=== PATIENT | male | born 1955 | race Caucasian/White ===

== ENCOUNTER 2020-04-04 03:01 | Inpatient (IN) | payer OTHER ==
[~2020-04-04] VITALS: Ht 172.7 cm; Wt 117.1 kg
[2020-04-04 04:00] LABS: Basophils # (auto) 0 10 ^3/uL (0-0.2); Basophils % (auto) 0.2 % (0.0-2.0); Eosinophils # (auto) 0 10 ^3/uL (0-0.8); Hematocrit 46.3 % (41.0-53.0); Hemoglobin 15.6 g/dL (13.5-17.5); Lymphocytes # (auto) 0.6 10 ^3/uL (0.4-5.4); Lymphocytes % (auto) 5.5 % (10.0-50.0); Mean Corpuscular Hemoglobin 30.7 pg (28.0-32.0); Mean Corpuscular Hgb Conc. 33.8 g/dL (32.0-36.0); Mean Corpuscular Volume 90.7 fL (80.0-100.0); Monocytes # (auto) 0.5 10 ^3/uL (0-1.3); Monocytes % (auto) 4.6 % (0.0-12.0); Neutrophils # (auto) 10.4 10 ^3/uL (1.6-8.6); Neutrophils % (auto) 89.7 % (37.0-80.0); Platelet Count (auto) 242 10^3/uL (140-450); Red Cell Distribution Width 13.8 % (11.8-14.3); White Blood Cell 11.6 10^3/uL (4.4-10.8)
[2020-04-04] MEDS ORDERED: methylPREDNISolone SOD SUCC 125 MG/2 ML VL IV ONE (04:00)
[2020-04-04 04:13] LABS: INR 1.01 (0.9-1.15); Partial Thromboplastin Time 27.3 sec (23.0-31.2)
[2020-04-04 04:19] LABS: Albumin 3.1 g/dL (3.4-5.0); Calcium 9.1 mg/dL (8.5-10.1); Magnesium 2.3 mg/dL (1.6-2.6); Potassium 3.8 mmol/L (3.5-5.1)
[2020-04-04 04:25] LABS: BUN/Creatinine Ratio 19.8; Bilirubin, Total 0.6 mg/dL (0.2-1.0); Total Protein 8.4 g/dL (6.4-8.2)
[2020-04-04] MEDS ORDERED: NAP500T PO (05:31)
[2020-04-04] MEDS ORDERED: SILD25TA15 PO (05:31)
[2020-04-04] MEDS ORDERED: METF-762 PO (05:31)
[2020-04-04] MEDS ORDERED: ROSU1TAB14 PO (05:31)
[2020-04-04] MEDS ORDERED: TAMS1CAP25 PO (05:31)
[2020-04-04] MEDS ORDERED: HYDR-4795 PO (05:31)
[2020-04-04 06:05] LABS: Urine Bacteria FEW /hpf (None Seen); Urine Blood Negative /uL (Negative); Urine Hyaline Cast MANY /lpf (0 - 2); Urine Mucus MODERATE (None Seen); Urine Specific Gravity 1.027 (1.001-1.035); Urine WBC 26 /hpf (0 - 3)
[2020-04-04] MEDS ORDERED: DexAMETHasone SOD PHOS 10MG/1ML VIAL INJ IV ONE ×2 (06:45→10:30)
[2020-04-04] MEDS ORDERED: ACETAMINOPHEN 325 MG TAB PO ONE (06:45)
[2020-04-04] MEDS ORDERED: DOXYCYCLINE 100MG/250ML 250 ML IV ONE (06:45)
[2020-04-04 06:50] VITALS: BP 107/87
[2020-04-04 09:15] LABS: Lactic Acid w/Reflex 3.9 mmol/L (0.4-2.0)
[2020-04-04] MEDS ORDERED: MORPHINE SULF INJ 2 MG/ML SYRINGE 1ML IV PRN (10:15)
[2020-04-04] MEDS ORDERED: ALBUTEROL SULF HFA 90MCG INH 200DOSE IN PRN (10:15)
[2020-04-04] MEDS ORDERED: DEXTROSE (50%) 50ML SYRG IV PRN (10:15)
[2020-04-04] MEDS ORDERED: ONDANSETRON HCL 4 MG/2 ML VIAL IV PRN (10:15)
[2020-04-04] MEDS ORDERED: REMDESIVIR PER PHARMACY 0 ML IV SCH (10:15)
[2020-04-04] MEDS ORDERED: HYDROcodone-ACET 5/325MG TAB PO PRN (10:15)
[2020-04-04] MEDS ORDERED: NITROGLYCERIN 0.4 MG SL TAB SL PRN (10:15)
[2020-04-04 10:23] VITALS: BP 131/73
[2020-04-04] MEDS ORDERED: FAMOTIDINE 20 MG TAB PO ONE (10:30)
[2020-04-04] MEDS ORDERED: cefTRIAXone 1GM/50ML D5W 50 ML IV ONE (10:30)
[2020-04-04] MEDS ORDERED: ENOXAPARIN SOD 40 MG/0.4 ML SYRINGE SC ONE (10:30)
[2020-04-04] MEDS ORDERED: ZINC SULFATE 220mg CAP or TAB PO ONE (10:30)
[2020-04-04] MEDS ORDERED: ASCORBIC ACID 1,000 MG TAB PO ONE (10:30)
[2020-04-04] MEDS ORDERED: CHOLECALCIFEROL (VITD3) 2,000 UNIT CAP PO ONE (10:30)
[2020-04-04] MEDS ORDERED: AZITHROMYCIN 500MG/ 250ML 250 ML IV ONE (10:30)
[2020-04-04] MEDS ORDERED: CHOLECALCIFEROL (VITD3) 1,000UNIT=25mCg TAB ONE (10:54)
[2020-04-04 11:10] LABS: Lactic Acid w/Reflex 2.2 mmol/L (0.4-2.0)
[2020-04-04] MEDS ORDERED: LISI-707 PO (11:12)
[2020-04-04 11:18] LABS: Lactate Dehydrogenase 929 U/L (87-241)
[2020-04-04 11:29] LABS: CRP High Sensitivity > 19 mg/dL (< 0.3)
[2020-04-04] MEDS: ACCU-CHEK COMFORT CURVE STRIP VI SCH ×3 (12:19→22:00)
[2020-04-04] MEDS: InsuLIN REG 1unit/0.01ml Soln (100units/ml) SC SCH ×3 (13:13→22:00)
[2020-04-04 13:48] VITALS: BP 152/122
[2020-04-04] MEDS ORDERED: IBUP800T24 PO (14:50)
[2020-04-04] MEDS ORDERED: MULTTAB48 PO (14:54)
[2020-04-04] MEDS ORDERED: ELDE1SYP PO (14:54)
[2020-04-04] MEDS ORDERED: SILD50TA42 PO (15:52)
[2020-04-04] MEDS ORDERED: SIMV10TA84 PO (15:56)
[2020-04-04 19:49] VITALS: BP 125/56
[2020-04-04] MEDS: BUDESONIDE (INHALATION) 0.5 MG/2 ML NEB NEB SCH (19:49)
[2020-04-04] MEDS ORDERED: REMDESIVIR 200 MG in NS 210ml LOADING DOSE ADULT IV ONE (20:00)
[2020-04-04] MEDS: ENOXAPARIN SOD 40 MG/0.4 ML SYRINGE SC SCH (22:00)
[2020-04-04] MEDS ORDERED: BUDESONIDE (INHALATION) 180 MCG IH IN SCH (22:00)
[2020-04-04 23:28] VITALS: BP 133/58
[2020-04-05] VITALS (8 sets, daily range): BP systolic 106–131; BP diastolic 41–62
[2020-04-05 05:13] LABS: Basophils # (auto) 0 10 ^3/uL (0-0.2); Basophils % (auto) 0.1 % (0.0-2.0); Eosinophils # (auto) 0 10 ^3/uL (0-0.8); Hematocrit 40.9 % (41.0-53.0); Hemoglobin 13.7 g/dL (13.5-17.5); Lymphocytes # (auto) 1.7 10 ^3/uL (0.4-5.4); Lymphocytes % (auto) 11.3 % (10.0-50.0); Mean Corpuscular Hemoglobin 30.3 pg (28.0-32.0); Mean Corpuscular Hgb Conc. 33.5 g/dL (32.0-36.0); Mean Corpuscular Volume 90.4 fL (80.0-100.0); Monocytes # (auto) 1.1 10 ^3/uL (0-1.3); Monocytes % (auto) 7.3 % (0.0-12.0); Neutrophils # (auto) 11.8 10 ^3/uL (1.6-8.6); Neutrophils % (auto) 81.3 % (37.0-80.0); Nucleated Red Blood Cells % 0.1 %; Platelet Count (auto) 282 10^3/uL (140-450); Red Blood Cells 4.52 10^6/uL (4.5-5.90); Red Cell Distribution Width 13.9 % (11.8-14.3); White Blood Cell 14.6 10^3/uL (4.4-10.8)
[2020-04-05 05:26] LABS: Albumin 2.7 g/dL (3.4-5.0); BUN/Creatinine Ratio 37.4; Calcium 8.5 mg/dL (8.5-10.1); Potassium 4.7 mmol/L (3.5-5.1)
[2020-04-05 05:29] LABS: Bilirubin, Total 0.4 mg/dL (0.2-1.0); Total Protein 7.1 g/dL (6.4-8.2)
[2020-04-05] MEDS: BUDESONIDE (INHALATION) 0.5 MG/2 ML NEB NEB SCH ×2 (07:06→23:00)
[2020-04-05] MEDS: ACCU-CHEK COMFORT CURVE STRIP VI SCH ×4 (07:52→22:44)
[2020-04-05] MEDS: InsuLIN REG 1unit/0.01ml Soln (100units/ml) SC SCH ×4 (07:53→22:45)
[2020-04-05] MEDS ORDERED: FUROSEMIDE 20 MG/2 ML VIAL IV SCH (10:00)
[2020-04-05] MEDS: cefTRIAXone 1GM/50ML D5W 50 ML IV SCH (11:03)
[2020-04-05] MEDS: AZITHROMYCIN 500MG/ 250ML 250 ML IV SCH (11:04)
[2020-04-05] MEDS: DexAMETHasone SOD PHOS 10MG/1ML VIAL INJ IV SCH (11:04)
[2020-04-05] MEDS: FAMOTIDINE 20 MG TAB PO SCH (11:04)
[2020-04-05] MEDS: ZINC SULFATE 220mg CAP or TAB PO SCH (11:04)
[2020-04-05] MEDS: ENOXAPARIN SOD 40 MG/0.4 ML SYRINGE SC SCH ×2 (11:05→22:44)
[2020-04-05] MEDS: CHOLECALCIFEROL (VITD3) 2,000 UNIT CAP PO SCH (11:05)
[2020-04-05] MEDS: ASCORBIC ACID 1,000 MG TAB PO SCH (11:05)
[2020-04-05] MEDS ORDERED: SODIUM CHLORIDE 0.9% 500 ML IV ONE (11:15)
[2020-04-05] MEDS: REMDESIVIR 100 MG in SODIUM CHL 0.9% 250 ML IV SCH (16:25)
[2020-04-05] MEDS: ERGOCALCIFEROL 50,000 UNIT(1.25MG) CAP PO SCH (23:04)
[2020-04-06 05:09] LABS: Albumin 2.8 g/dL (3.4-5.0); Calcium 8.6 mg/dL (8.5-10.1); Potassium 4.1 mmol/L (3.5-5.1)
[2020-04-06 05:13] LABS: BUN/Creatinine Ratio 45.8; Bilirubin, Total 0.5 mg/dL (0.2-1.0); Total Protein 7.2 g/dL (6.4-8.2)
[2020-04-06 05:45] VITALS: BP 119/61
[2020-04-06] MEDS: ALBUTEROL SULF HFA 90MCG INH 200DOSE IN SCH ×3 (06:00→22:00)
[2020-04-06] MEDS: ACCU-CHEK COMFORT CURVE STRIP VI SCH ×4 (06:49→20:40)
[2020-04-06] MEDS: InsuLIN REG 1unit/0.01ml Soln (100units/ml) SC SCH ×4 (06:53→20:37)
[2020-04-06] MEDS: BUDESONIDE (INHALATION) 0.5 MG/2 ML NEB NEB SCH ×2 (10:00→19:49)
[2020-04-06] MEDS: ZINC SULFATE 220mg CAP or TAB PO SCH (13:11)
[2020-04-06] MEDS: AZITHROMYCIN 500MG/ 250ML 250 ML IV SCH (13:11)
[2020-04-06] MEDS: cefTRIAXone 1GM/50ML D5W 50 ML IV SCH (13:11)
[2020-04-06] MEDS: FAMOTIDINE 20 MG TAB PO SCH (13:11)
[2020-04-06] MEDS: DexAMETHasone SOD PHOS 10MG/1ML VIAL INJ IV SCH (13:11)
[2020-04-06] MEDS: ASCORBIC ACID 1,000 MG TAB PO SCH (13:11)
[2020-04-06] MEDS: ENOXAPARIN SOD 40 MG/0.4 ML SYRINGE SC SCH ×2 (13:12→20:40)
[2020-04-06] MEDS: CHOLECALCIFEROL (VITD3) 2,000 UNIT CAP PO SCH (13:12)
[2020-04-06 13:35] VITALS: BP 112/40
[2020-04-06] MEDS: ACETAMINOPHEN 500 MG TAB PO PRN (15:25)
[2020-04-06] MEDS: REMDESIVIR 100 MG in SODIUM CHL 0.9% 250 ML IV SCH (18:33)
[2020-04-06 19:20] VITALS: BP 147/81
[2020-04-07 02:46] VITALS: BP_SYST 123; BP_SYST 133; BP_DIAS 62; BP_DIAS 70
[2020-04-07] MEDS: ALBUTEROL SULF HFA 90MCG INH 200DOSE IN SCH ×2 (06:00→14:00)
[2020-04-07 06:20] VITALS: BP 141/43
[2020-04-07] MEDS: ACCU-CHEK COMFORT CURVE STRIP VI SCH ×4 (07:41→21:22)
[2020-04-07] MEDS: InsuLIN REG 1unit/0.01ml Soln (100units/ml) SC SCH ×4 (07:41→21:21)
[2020-04-07 08:22] LABS: Potassium 4.1 mmol/L (3.5-5.1)
[2020-04-07 08:35] LABS: Albumin 2.4 g/dL (3.4-5.0); BUN/Creatinine Ratio 40.3; Bilirubin, Total 0.6 mg/dL (0.2-1.0); Calcium 8.8 mg/dL (8.5-10.1); Total Protein 6.5 g/dL (6.4-8.2)
[2020-04-07] MEDS: CHOLECALCIFEROL (VITD3) 2,000 UNIT CAP PO SCH (09:32)
[2020-04-07] MEDS: ENOXAPARIN SOD 40 MG/0.4 ML SYRINGE SC SCH ×2 (09:32→21:22)
[2020-04-07] MEDS: FAMOTIDINE 20 MG TAB PO SCH (09:32)
[2020-04-07] MEDS: ASCORBIC ACID 1,000 MG TAB PO SCH (09:32)
[2020-04-07] MEDS: cefTRIAXone 1GM/50ML D5W 50 ML IV SCH (09:32)
[2020-04-07] MEDS: AZITHROMYCIN 500MG/ 250ML 250 ML IV SCH (09:32)
[2020-04-07] MEDS: ZINC SULFATE 220mg CAP or TAB PO SCH (09:32)
[2020-04-07] MEDS: DexAMETHasone SOD PHOS 10MG/1ML VIAL INJ IV SCH (09:32)
[2020-04-07] MEDS: BUDESONIDE (INHALATION) 0.5 MG/2 ML NEB NEB SCH ×2 (10:00→19:21)
[2020-04-07] MEDS ORDERED: FUROSEMIDE 40 MG/4 ML VIAL IV ONE (14:30)
[2020-04-07] MEDS: REMDESIVIR 100 MG in SODIUM CHL 0.9% 250 ML IV SCH (15:00)
[2020-04-07] MEDS ORDERED: SUCCINYLCHOLINE CHLORIDE 20 MG/ML 10ML VIAL IV ONE ×2 (15:23→15:41)
[2020-04-07] MEDS ORDERED: ETOMIDATE (2MG/ML) 20ML VIAL IV ONE ×2 (15:23→16:15)
[2020-04-07] MEDS ORDERED: MIDAZOLAM DRIP 50 mg/50mL 50 ML IV ONE (15:23)
[2020-04-07 15:42] VITALS: BP 123/74
[2020-04-07] MEDS: MIDAZOLAM DRIP 50 mg/50mL 50 ML IV SCH (15:43)
[2020-04-07] MEDS: PROPOFOL 100 ML IV SCH (15:43)
[2020-04-07] MEDS ORDERED: PROPOFOL 100 ML IV ONE (15:44)
[2020-04-07] MEDS ORDERED: fentaNYL Drip 2500mCg/250mlNS 250 ML IV ONE (16:32)
[2020-04-07] MEDS: fentaNYL Drip 2500mCg/250mlNS 250 ML IV SCH (16:40)
[2020-04-07 18:50] VITALS: BP 100/56
[2020-04-07 22:10] VITALS: BP 102/54
[2020-04-07] MEDS: ALBUTEROL SULF 2.5 MG/0.5ML(0.5%) NEB SOLN NEB SCH (22:18)
[2020-04-08] VITALS (85 sets, daily range): BP systolic 87–116; BP diastolic 42–58
[2020-04-08 05:41] LABS: Albumin 2.3 g/dL (3.4-5.0); Magnesium 2.3 mg/dL (1.6-2.6); Potassium 4.7 mmol/L (3.5-5.1)
[2020-04-08] MEDS: ACCU-CHEK COMFORT CURVE STRIP VI SCH ×4 (05:46→21:55)
[2020-04-08] MEDS: InsuLIN REG 1unit/0.01ml Soln (100units/ml) SC SCH ×4 (05:46→23:28)
[2020-04-08 05:47] LABS: BUN/Creatinine Ratio 35.4; Bilirubin, Total 0.6 mg/dL (0.2-1.0); Total Protein 6.3 g/dL (6.4-8.2)
[2020-04-08 06:06] LABS: Basophils # (auto) 0.1 10 ^3/uL (0-0.2); Basophils % (auto) 0.4 % (0.0-2.0); Eosinophils # (auto) 0.1 10 ^3/uL (0-0.8); Eosinophils % (auto) 0.6 % (0.0-7.0); Hematocrit 38.5 % (41.0-53.0); Hemoglobin 13.2 g/dL (13.5-17.5); Lymphocytes # (auto) 1.1 10 ^3/uL (0.4-5.4); Lymphocytes % (auto) 7.7 % (10.0-50.0); Mean Corpuscular Hemoglobin 31.9 pg (28.0-32.0); Mean Corpuscular Hgb Conc. 34.3 g/dL (32.0-36.0); Mean Corpuscular Volume 93.2 fL (80.0-100.0); Monocytes # (auto) 0.9 10 ^3/uL (0-1.3); Monocytes % (auto) 6.1 % (0.0-12.0); Neutrophils # (auto) 12.7 10 ^3/uL (1.6-8.6); Neutrophils % (auto) 85.2 % (37.0-80.0); Nucleated Red Blood Cells % 0.1 %; Platelet Count (auto) 273 10^3/uL (140-450); Red Blood Cells 4.14 10^6/uL (4.5-5.90); Red Cell Distribution Width 13.8 % (11.8-14.3); White Blood Cell 14.9 10^3/uL (4.4-10.8)
[2020-04-08] MEDS: ALBUTEROL SULF 2.5 MG/0.5ML(0.5%) NEB SOLN NEB SCH ×3 (06:15→18:20)
[2020-04-08] MEDS: BUDESONIDE (INHALATION) 0.5 MG/2 ML NEB NEB SCH ×2 (06:15→18:20)
[2020-04-08] MEDS: cefTRIAXone 1GM/50ML D5W 50 ML IV SCH (09:00)
[2020-04-08] MEDS ORDERED: PIPERACILLIN-TAZO 4.5GM 100 ML IV ONE (09:15)
[2020-04-08] MEDS ORDERED: CALCIUM ACETATE 667 MG CAP PO ONE (09:15)
[2020-04-08] MEDS: DexAMETHasone SOD PHOS 10MG/1ML VIAL INJ IV SCH (10:00)
[2020-04-08] MEDS ORDERED: FUROSEMIDE 20 MG/2 ML VIAL IV SCH (10:00)
[2020-04-08] MEDS: ZINC SULFATE 220mg CAP or TAB PO SCH (10:00)
[2020-04-08] MEDS: FUROSEMIDE 20 MG/2 ML VIAL IV SCH (10:00)
[2020-04-08] MEDS: ASCORBIC ACID 1,000 MG TAB PO SCH (10:00)
[2020-04-08] MEDS: AZITHROMYCIN 500MG/ 250ML 250 ML IV SCH (10:00)
[2020-04-08] MEDS: PANTOPRAZOLE 40 MG/10 ML VIAL INJ IV SCH (10:00)
[2020-04-08] MEDS: CHOLECALCIFEROL (VITD3) 2,000 UNIT CAP PO SCH (10:00)
[2020-04-08] MEDS ORDERED: ENOXAPARIN SOD 80 MG/0.8ML SYRINGE SC ONE (10:45)
[2020-04-08] MEDS ORDERED: ACETAMINOPHEN 650 mg PER 20.3 mL UD PO ONE ×2 (11:30→16:30)
[2020-04-08] MEDS: PROPOFOL 100 ML IV SCH ×3 (11:30→18:31)
[2020-04-08] MEDS ORDERED: diphenhdrAMINE HCL 50 MG/1 ML VL IV ONE ×2 (11:30→16:30)
[2020-04-08] MEDS ORDERED: TOCILIZUMAB 400 MG in SODIUM CHL 0.9% 80 ML IV ONE ×2 (12:00→17:00)
[2020-04-08] MEDS: MIDAZOLAM DRIP 50 mg/50mL 50 ML IV SCH ×2 (14:21→18:32)
[2020-04-08] MEDS: fentaNYL Drip 2500mCg/250mlNS 250 ML IV SCH (14:21)
[2020-04-08] MEDS: REMDESIVIR 100 MG in SODIUM CHL 0.9% 250 ML IV SCH (16:05)
[2020-04-08] MEDS ORDERED: methylPREDNISolone SOD SUCC 40 MG/ML VL IV ONE (16:30)
[2020-04-08] MEDS: PIPERACILLIN-TAZOB 3.375GM 100 ML IV SCH ×2 (19:31→23:42)
[2020-04-08] MEDS: ENOXAPARIN SOD 120 MG/0.8 ML SYRINGE SC SCH (21:56)
[2020-04-08] MEDS: ACETAMINOPHEN 500 MG TAB PO PRN (22:00)
[2020-04-09] VITALS (90 sets, daily range): BP systolic 110–166; BP diastolic 49–81
[2020-04-09 03:27] LABS: Basophils # (auto) 0.1 10 ^3/uL (0-0.2); Basophils % (auto) 0.5 % (0.0-2.0); Eosinophils # (auto) 0 10 ^3/uL (0-0.8); Eosinophils % (auto) 0.3 % (0.0-7.0); Hemoglobin 12.4 g/dL (13.5-17.5); Lymphocytes # (auto) 0.5 10 ^3/uL (0.4-5.4); Lymphocytes % (auto) 3.9 % (10.0-50.0); Mean Corpuscular Hemoglobin 30.1 pg (28.0-32.0); Mean Corpuscular Hgb Conc. 32.7 g/dL (32.0-36.0); Mean Corpuscular Volume 92.1 fL (80.0-100.0); Monocytes # (auto) 0.5 10 ^3/uL (0-1.3); Monocytes % (auto) 4.2 % (0.0-12.0); Neutrophils # (auto) 11.6 10 ^3/uL (1.6-8.6); Neutrophils % (auto) 91.1 % (37.0-80.0); Nucleated Red Blood Cells % 0.1 %; Platelet Count (auto) 308 10^3/uL (140-450); Red Blood Cells 4.12 10^6/uL (4.5-5.90); Red Cell Distribution Width 14.1 % (11.8-14.3); White Blood Cell 12.7 10^3/uL (4.4-10.8)
[2020-04-09 04:17] LABS: Calcium 7.9 mg/dL (8.5-10.1); Potassium 4.5 mmol/L (3.5-5.1)
[2020-04-09 04:25] LABS: BUN/Creatinine Ratio 31.9; CRP High Sensitivity 12.2 mg/dL (< 0.3); Phosphorus 3.5 mg/dL (2.5-4.90)
[2020-04-09] MEDS: ACCU-CHEK COMFORT CURVE STRIP VI SCH ×4 (05:27→21:39)
[2020-04-09] MEDS: PIPERACILLIN-TAZOB 3.375GM 100 ML IV SCH ×4 (05:27→23:29)
[2020-04-09] MEDS: fentaNYL Drip 2500mCg/250mlNS 250 ML IV SCH (05:45)
[2020-04-09] MEDS: InsuLIN REG 1unit/0.01ml Soln (100units/ml) SC SCH ×4 (05:58→21:42)
[2020-04-09] MEDS: ALBUTEROL SULF 2.5 MG/0.5ML(0.5%) NEB SOLN NEB SCH ×3 (07:30→18:50)
[2020-04-09] MEDS: BUDESONIDE (INHALATION) 0.5 MG/2 ML NEB NEB SCH ×2 (07:30→18:50)
[2020-04-09] MEDS: cefTRIAXone 1GM/50ML D5W 50 ML IV SCH (09:27)
[2020-04-09] MEDS: DexAMETHasone SOD PHOS 10MG/1ML VIAL INJ IV SCH (09:27)
[2020-04-09] MEDS: FUROSEMIDE 20 MG/2 ML VIAL IV SCH (09:27)
[2020-04-09] MEDS: PANTOPRAZOLE 40 MG/10 ML VIAL INJ IV SCH (09:28)
[2020-04-09] MEDS: ZINC SULFATE 220mg CAP or TAB PO SCH (09:28)
[2020-04-09] MEDS: ASCORBIC ACID 1,000 MG TAB PO SCH (09:28)
[2020-04-09] MEDS: CHOLECALCIFEROL (VITD3) 2,000 UNIT CAP PO SCH (09:28)
[2020-04-09] MEDS: ENOXAPARIN SOD 120 MG/0.8 ML SYRINGE SC SCH ×2 (09:29→21:39)
[2020-04-09 09:35] LABS: INR 1.06 (0.9-1.15); Partial Thromboplastin Time 24.1 sec (23.0-31.2)
[2020-04-09] MEDS ORDERED: ACETAMINOPHEN 650 mg PER 20.3 mL UD PO ONE (10:00)
[2020-04-09] MEDS ORDERED: diphenhdrAMINE HCL 50 MG/1 ML VL IV ONE (10:00)
[2020-04-09] MEDS ORDERED: TOCILIZUMAB 400 MG in SODIUM CHL 0.9% 80 ML IV ONE (10:30)
[2020-04-09] MEDS ORDERED: PANTOPRAZOLE 40 MG/10 ML VIAL INJ IV ONE (11:30)
[2020-04-09] MEDS: AZITHROMYCIN 500MG/ 250ML 250 ML IV SCH (11:42)
[2020-04-09] MEDS ORDERED: LIDOCAINE 1% (LOCAL ANESTH.) PF 5ml SDV ID ONE (12:45)
[2020-04-09] MEDS: MIDAZOLAM DRIP 50 mg/50mL 50 ML IV SCH ×2 (13:30→19:56)
[2020-04-09] MEDS: SODIUM CHLOR 0.9% PF (SALINE LOCK) 10ML VIAL/SYR IV SCH (21:39)
[2020-04-10] VITALS (92 sets, daily range): BP systolic 111–165; BP diastolic 52–80
[2020-04-10 03:14] LABS: Basophils # (auto) 0.1 10 ^3/uL (0-0.2); Basophils % (auto) 0.5 % (0.0-2.0); Eosinophils # (auto) 0.2 10 ^3/uL (0-0.8); Eosinophils % (auto) 1.8 % (0.0-7.0); Hematocrit 38.4 % (41.0-53.0); Hemoglobin 12.8 g/dL (13.5-17.5); Lymphocytes # (auto) 1.2 10 ^3/uL (0.4-5.4); Mean Corpuscular Hemoglobin 30.6 pg (28.0-32.0); Mean Corpuscular Hgb Conc. 33.4 g/dL (32.0-36.0); Mean Corpuscular Volume 91.6 fL (80.0-100.0); Monocytes # (auto) 0.9 10 ^3/uL (0-1.3); Monocytes % (auto) 6.9 % (0.0-12.0); Neutrophils % (auto) 81.8 % (37.0-80.0); Platelet Count (auto) 357 10^3/uL (140-450); Red Cell Distribution Width 13.8 % (11.8-14.3); White Blood Cell 13.5 10^3/uL (4.4-10.8)
[2020-04-10 03:34] LABS: BUN/Creatinine Ratio 41.7; Calcium 7.8 mg/dL (8.5-10.1); Potassium 4.3 mmol/L (3.5-5.1)
[2020-04-10] MEDS: ACCU-CHEK COMFORT CURVE STRIP VI SCH ×4 (06:05→22:24)
[2020-04-10] MEDS: InsuLIN REG 1unit/0.01ml Soln (100units/ml) SC SCH ×4 (06:05→22:25)
[2020-04-10] MEDS: PIPERACILLIN-TAZOB 3.375GM 100 ML IV SCH ×4 (06:08→23:44)
[2020-04-10] MEDS: BUDESONIDE (INHALATION) 0.5 MG/2 ML NEB NEB SCH ×2 (06:41→22:36)
[2020-04-10] MEDS: ALBUTEROL SULF 2.5 MG/0.5ML(0.5%) NEB SOLN NEB SCH ×3 (06:41→22:37)
[2020-04-10] MEDS: AZITHROMYCIN 500MG/ 250ML 250 ML IV SCH (08:22)
[2020-04-10] MEDS: SODIUM CHLOR 0.9% PF (SALINE LOCK) 10ML VIAL/SYR IV SCH ×2 (08:22→21:48)
[2020-04-10] MEDS: cefTRIAXone 1GM/50ML D5W 50 ML IV SCH (08:23)
[2020-04-10] MEDS: PANTOPRAZOLE 40 MG/10 ML VIAL INJ IV SCH (08:23)
[2020-04-10] MEDS: FUROSEMIDE 20 MG/2 ML VIAL IV SCH (08:24)
[2020-04-10] MEDS: DexAMETHasone SOD PHOS 10MG/1ML VIAL INJ IV SCH (08:24)
[2020-04-10] MEDS: ENOXAPARIN SOD 120 MG/0.8 ML SYRINGE SC SCH ×2 (08:24→21:48)
[2020-04-10] MEDS: ASCORBIC ACID 1,000 MG TAB PO SCH (08:24)
[2020-04-10] MEDS: CHOLECALCIFEROL (VITD3) 2,000 UNIT CAP PO SCH (08:25)
[2020-04-10] MEDS: ZINC SULFATE 220mg CAP or TAB PO SCH (08:25)
[2020-04-10] MEDS: fentaNYL Drip 2500mCg/250mlNS 250 ML IV SCH (09:00)
[2020-04-10] MEDS ORDERED: PANTOPRAZOLE 40 MG/10 ML VIAL INJ IV SCH (10:00)
[2020-04-10] MEDS: PROPOFOL 100 ML IV SCH ×4 (11:15→20:13)
[2020-04-10] MEDS: MIDAZOLAM DRIP 50 mg/50mL 50 ML IV SCH ×2 (11:16→20:00)
[2020-04-11] VITALS (85 sets, daily range): BP systolic 98–148; BP diastolic 41–79
[2020-04-11] MEDS: fentaNYL Drip 2500mCg/250mlNS 250 ML IV SCH
[2020-04-11] MEDS: PROPOFOL 100 ML IV SCH ×5 (00:02→19:48)
[2020-04-11] MEDS: MIDAZOLAM DRIP 50 mg/50mL 50 ML IV SCH ×4 (00:03→19:49)
[2020-04-11] MEDS: PIPERACILLIN-TAZOB 3.375GM 100 ML IV SCH ×4 (05:18→23:41)
[2020-04-11] MEDS: ACCU-CHEK COMFORT CURVE STRIP VI SCH ×4 (06:35→22:18)
[2020-04-11] MEDS: InsuLIN REG 1unit/0.01ml Soln (100units/ml) SC SCH ×4 (06:39→22:33)
[2020-04-11] MEDS: BUDESONIDE (INHALATION) 0.5 MG/2 ML NEB NEB SCH ×2 (07:14→22:00)
[2020-04-11] MEDS: ALBUTEROL SULF 2.5 MG/0.5ML(0.5%) NEB SOLN NEB SCH ×3 (07:14→22:00)
[2020-04-11] MEDS: DexAMETHasone SOD PHOS 10MG/1ML VIAL INJ IV SCH (08:35)
[2020-04-11] MEDS: FUROSEMIDE 20 MG/2 ML VIAL IV SCH (08:36)
[2020-04-11] MEDS: SODIUM CHLOR 0.9% PF (SALINE LOCK) 10ML VIAL/SYR IV SCH ×2 (08:36→19:47)
[2020-04-11] MEDS: PANTOPRAZOLE 40 MG/10 ML VIAL INJ IV SCH (08:36)
[2020-04-11 08:37] LABS: Potassium 3.7 mmol/L (3.5-5.1)
[2020-04-11] MEDS: ZINC SULFATE 220mg CAP or TAB PO SCH (08:37)
[2020-04-11] MEDS: CHOLECALCIFEROL (VITD3) 2,000 UNIT CAP PO SCH (08:37)
[2020-04-11] MEDS: ENOXAPARIN SOD 120 MG/0.8 ML SYRINGE SC SCH ×2 (08:37→22:17)
[2020-04-11] MEDS: ASCORBIC ACID 1,000 MG TAB PO SCH (08:37)
[2020-04-11 09:10] LABS: BUN/Creatinine Ratio 47.6; Calcium 7.3 mg/dL (8.5-10.1)
[2020-04-11] MEDS ORDERED: IOHEXOL 350 MG/ML 100ML IJ ONE (10:00)
[2020-04-12] VITALS (98 sets, daily range): BP systolic 102–135; BP diastolic 48–73
[2020-04-12] MEDS: MIDAZOLAM DRIP 50 mg/50mL 50 ML IV SCH ×3 (01:11→23:22)
[2020-04-12 04:07] LABS: Hematocrit 44.7 % (41.0-53.0); Hemoglobin 14.7 g/dL (13.5-17.5); Mean Corpuscular Hemoglobin 31.5 pg (28.0-32.0); Mean Corpuscular Hgb Conc. 32.9 g/dL (32.0-36.0); Mean Corpuscular Volume 95.8 fL (80.0-100.0); Platelet Count (auto) 411 10^3/uL (140-450); Red Blood Cells 4.66 10^6/uL (4.5-5.90); Red Cell Distribution Width 14.2 % (11.8-14.3)
[2020-04-12 04:21] LABS: Band Neutrophils % (manual) 0; Basophils % (manual) 0 (0.0-2.0); Blast Cells 0; Eosinophils % (manual) 0 (0-7); Metamyelocytes % 0; Myelocytes % 0; Promyelocytes % 0; Reactive Lymphocytes 0
[2020-04-12 04:26] LABS: Albumin 2.3 g/dL (3.4-5.0); Calcium 7.8 mg/dL (8.5-10.1); Potassium 4.3 mmol/L (3.5-5.1)
[2020-04-12 04:32] LABS: BUN/Creatinine Ratio 46.4; Bilirubin, Total 1.1 mg/dL (0.2-1.0); Total Protein 6.3 g/dL (6.4-8.2)
[2020-04-12 04:53] LABS: CRP High Sensitivity 1.3 mg/dL (< 0.3)
[2020-04-12 05:00] LABS: Lymphocytes % (manual) 13 (10.0-50.0); Monocytes % (manual) 1 (0-12)
[2020-04-12] MEDS: PIPERACILLIN-TAZOB 3.375GM 100 ML IV SCH ×4 (06:00→23:09)
[2020-04-12] MEDS: ACCU-CHEK COMFORT CURVE STRIP VI SCH ×4 (06:37→22:34)
[2020-04-12] MEDS: InsuLIN REG 1unit/0.01ml Soln (100units/ml) SC SCH ×4 (06:39→22:52)
[2020-04-12] MEDS: BUDESONIDE (INHALATION) 0.5 MG/2 ML NEB NEB SCH ×2 (07:24→22:00)
[2020-04-12] MEDS: ALBUTEROL SULF 2.5 MG/0.5ML(0.5%) NEB SOLN NEB SCH ×2 (07:24→22:00)
[2020-04-12] MEDS: fentaNYL Drip 2500mCg/250mlNS 250 ML IV SCH ×2 (09:00→15:44)
[2020-04-12] MEDS: FUROSEMIDE 20 MG/2 ML VIAL IV SCH (09:16)
[2020-04-12] MEDS: PANTOPRAZOLE 40 MG/10 ML VIAL INJ IV SCH (09:17)
[2020-04-12] MEDS: ENOXAPARIN SOD 120 MG/0.8 ML SYRINGE SC SCH ×2 (09:19→22:33)
[2020-04-12] MEDS: SODIUM CHLOR 0.9% PF (SALINE LOCK) 10ML VIAL/SYR IV SCH ×2 (09:19→22:33)
[2020-04-12] MEDS: ZINC SULFATE 220mg CAP or TAB PO SCH (09:19)
[2020-04-12] MEDS: CHOLECALCIFEROL (VITD3) 2,000 UNIT CAP PO SCH (09:19)
[2020-04-12] MEDS: ASCORBIC ACID 1,000 MG TAB PO SCH (09:19)
[2020-04-12] MEDS: DexAMETHasone SOD PHOS 10MG/1ML VIAL INJ IV SCH (09:20)
[2020-04-12] MEDS: ERGOCALCIFEROL 50,000 UNIT(1.25MG) CAP PO SCH (22:51)
[2020-04-12] MEDS: PROPOFOL 100 ML IV SCH (23:22)
[2020-04-13] VITALS (99 sets, daily range): BP systolic 102–132; BP diastolic 48–67
[2020-04-13] MEDS: fentaNYL Drip 2500mCg/250mlNS 250 ML IV SCH ×2 (02:15→17:30)
[2020-04-13] MEDS: PIPERACILLIN-TAZOB 3.375GM 100 ML IV SCH ×4 (05:02→23:03)
[2020-04-13] MEDS: ACCU-CHEK COMFORT CURVE STRIP VI SCH ×4 (06:26→22:23)
[2020-04-13] MEDS: InsuLIN REG 1unit/0.01ml Soln (100units/ml) SC SCH ×4 (06:26→22:25)
[2020-04-13] MEDS: DexAMETHasone SOD PHOS 10MG/1ML VIAL INJ IV SCH (09:41)
[2020-04-13] MEDS: ZINC SULFATE 220mg CAP or TAB PO SCH (09:42)
[2020-04-13] MEDS: PANTOPRAZOLE 40 MG/10 ML VIAL INJ IV SCH (09:42)
[2020-04-13] MEDS: FUROSEMIDE 20 MG/2 ML VIAL IV SCH (09:42)
[2020-04-13] MEDS: SODIUM CHLOR 0.9% PF (SALINE LOCK) 10ML VIAL/SYR IV SCH ×2 (09:42→22:24)
[2020-04-13] MEDS: ASCORBIC ACID 1,000 MG TAB PO SCH (09:43)
[2020-04-13] MEDS: CHOLECALCIFEROL (VITD3) 2,000 UNIT CAP PO SCH (09:48)
[2020-04-13] MEDS: ENOXAPARIN SOD 120 MG/0.8 ML SYRINGE SC SCH ×2 (09:49→22:46)
[2020-04-13] MEDS ORDERED: Jevity 1.2 Cal/Fiber 1 Liter NG SCH (10:30)
[2020-04-13] MEDS: MIDAZOLAM DRIP 50 mg/50mL 50 ML IV SCH ×2 (10:30→19:14)
[2020-04-13] MEDS: ALBUTEROL SULF 2.5 MG/0.5ML(0.5%) NEB SOLN NEB SCH ×2 (11:00→22:23)
[2020-04-13] MEDS: BUDESONIDE (INHALATION) 0.5 MG/2 ML NEB NEB SCH ×2 (11:00→22:23)
[2020-04-13] MEDS: FLUCONAZOLE 200MG/100ML 100 ML IV SCH ×2 (11:52→12:00)
[2020-04-14] VITALS (99 sets, daily range): BP systolic 100–126; BP diastolic 50–67
[2020-04-14] MEDS: MIDAZOLAM DRIP 50 mg/50mL 50 ML IV SCH ×5 (03:40→20:47)
[2020-04-14] MEDS: PROPOFOL 100 ML IV SCH ×2 (03:41→08:11)
[2020-04-14 06:27] LABS: Basophils # (auto) 0.1 10 ^3/uL (0-0.2); Basophils % (auto) 0.4 % (0.0-2.0); Eosinophils # (auto) 0.1 10 ^3/uL (0-0.8); Eosinophils % (auto) 0.5 % (0.0-7.0); Hematocrit 36.7 % (41.0-53.0); Hemoglobin 12.5 g/dL (13.5-17.5); Lymphocytes # (auto) 1.9 10 ^3/uL (0.4-5.4); Lymphocytes % (auto) 12.4 % (10.0-50.0); Mean Corpuscular Hemoglobin 31.1 pg (28.0-32.0); Mean Corpuscular Hgb Conc. 34.2 g/dL (32.0-36.0); Mean Corpuscular Volume 90.8 fL (80.0-100.0); Monocytes # (auto) 0.9 10 ^3/uL (0-1.3); Monocytes % (auto) 6.2 % (0.0-12.0); Neutrophils # (auto) 12.2 10 ^3/uL (1.6-8.6); Neutrophils % (auto) 80.5 % (37.0-80.0); Platelet Count (auto) 416 10^3/uL (140-450); Red Blood Cells 4.04 10^6/uL (4.5-5.90); Red Cell Distribution Width 13.8 % (11.8-14.3); White Blood Cell 15.2 10^3/uL (4.4-10.8)
[2020-04-14 06:34] LABS: Albumin 2.3 g/dL (3.4-5.0); BUN/Creatinine Ratio 50.7; Calcium 7.5 mg/dL (8.5-10.1); Potassium 3.8 mmol/L (3.5-5.1)
[2020-04-14 06:37] LABS: Bilirubin, Total 1.3 mg/dL (0.2-1.0); Total Protein 5.4 g/dL (6.4-8.2)
[2020-04-14] MEDS: PIPERACILLIN-TAZOB 3.375GM 100 ML IV SCH ×4 (06:48→23:41)
[2020-04-14] MEDS: ACCU-CHEK COMFORT CURVE STRIP VI SCH ×4 (06:49→22:27)
[2020-04-14] MEDS: InsuLIN REG 1unit/0.01ml Soln (100units/ml) SC SCH ×4 (06:51→22:28)
[2020-04-14] MEDS: ALBUTEROL SULF 2.5 MG/0.5ML(0.5%) NEB SOLN NEB SCH ×3 (07:24→22:00)
[2020-04-14] MEDS: BUDESONIDE (INHALATION) 0.5 MG/2 ML NEB NEB SCH ×2 (09:42→22:00)
[2020-04-14] MEDS: fentaNYL Drip 2500mCg/250mlNS 250 ML IV SCH ×2 (09:49→22:50)
[2020-04-14] MEDS: PANTOPRAZOLE 40 MG/10 ML VIAL INJ IV SCH (10:00)
[2020-04-14] MEDS: FUROSEMIDE 20 MG/2 ML VIAL IV SCH (10:20)
[2020-04-14] MEDS: DexAMETHasone SOD PHOS 10MG/1ML VIAL INJ IV SCH (10:20)
[2020-04-14] MEDS: CHOLECALCIFEROL (VITD3) 2,000 UNIT CAP PO SCH (10:21)
[2020-04-14] MEDS: ENOXAPARIN SOD 120 MG/0.8 ML SYRINGE SC SCH ×2 (10:21→22:27)
[2020-04-14] MEDS: SODIUM CHLOR 0.9% PF (SALINE LOCK) 10ML VIAL/SYR IV SCH ×2 (10:21→22:27)
[2020-04-14] MEDS: ASCORBIC ACID 1,000 MG TAB PO SCH (10:22)
[2020-04-14] MEDS: ZINC SULFATE 220mg CAP or TAB PO SCH (10:22)
[2020-04-14] MEDS: FLUCONAZOLE 200MG/100ML 100 ML IV SCH (10:24)
[2020-04-15] VITALS (91 sets, daily range): BP systolic 111–174; BP diastolic 45–92
[2020-04-15] MEDS: MIDAZOLAM DRIP 50 mg/50mL 50 ML IV SCH ×2 (00:57→13:37)
[2020-04-15] MEDS: PROPOFOL 100 ML IV SCH (00:58)
[2020-04-15] MEDS: PIPERACILLIN-TAZOB 3.375GM 100 ML IV SCH ×3 (06:00→17:57)
[2020-04-15] MEDS: ACCU-CHEK COMFORT CURVE STRIP VI SCH ×4 (07:04→22:00)
[2020-04-15] MEDS: InsuLIN REG 1unit/0.01ml Soln (100units/ml) SC SCH ×4 (07:04→22:00)
[2020-04-15] MEDS: ALBUTEROL SULF 2.5 MG/0.5ML(0.5%) NEB SOLN NEB SCH ×3 (07:24→19:09)
[2020-04-15] MEDS: BUDESONIDE (INHALATION) 0.5 MG/2 ML NEB NEB SCH ×2 (07:24→19:09)
[2020-04-15] MEDS: PANTOPRAZOLE 40 MG/10 ML VIAL INJ IV SCH (10:00)
[2020-04-15] MEDS: ZINC SULFATE 220mg CAP or TAB PO SCH (10:20)
[2020-04-15] MEDS: FUROSEMIDE 20 MG/2 ML VIAL IV SCH (10:20)
[2020-04-15] MEDS: DexAMETHasone SOD PHOS 10MG/1ML VIAL INJ IV SCH (10:22)
[2020-04-15] MEDS: ASCORBIC ACID 1,000 MG TAB PO SCH (10:22)
[2020-04-15] MEDS: ENOXAPARIN SOD 120 MG/0.8 ML SYRINGE SC SCH ×2 (10:22→20:15)
[2020-04-15] MEDS: CHOLECALCIFEROL (VITD3) 2,000 UNIT CAP PO SCH (10:23)
[2020-04-15] MEDS: FLUCONAZOLE 200MG/100ML 100 ML IV SCH (10:24)
[2020-04-15] MEDS: SODIUM CHLOR 0.9% PF (SALINE LOCK) 10ML VIAL/SYR IV SCH ×2 (10:24→20:16)
[2020-04-15] MEDS: fentaNYL Drip 2500mCg/250mlNS 250 ML IV SCH (11:00)
[2020-04-15] MEDS ORDERED: FAMOTIDINE 20 MG TAB PO SCH (11:00)
[2020-04-15] MEDS: FAMOTIDINE 20 MG TAB PO SCH ×2 (12:25→20:15)
[2020-04-16] VITALS (101 sets, daily range): BP systolic 107–193; BP diastolic 59–97
[2020-04-16] MEDS: PIPERACILLIN-TAZOB 3.375GM 100 ML IV SCH ×5 (00:25→23:21)
[2020-04-16] MEDS: MIDAZOLAM DRIP 50 mg/50mL 50 ML IV SCH (01:10)
[2020-04-16] MEDS: ACCU-CHEK COMFORT CURVE STRIP VI SCH ×4 (06:05→21:12)
[2020-04-16] MEDS: InsuLIN REG 1unit/0.01ml Soln (100units/ml) SC SCH ×4 (06:06→21:41)
[2020-04-16] MEDS: BUDESONIDE (INHALATION) 0.5 MG/2 ML NEB NEB SCH ×2 (07:20→18:40)
[2020-04-16] MEDS: ALBUTEROL SULF 2.5 MG/0.5ML(0.5%) NEB SOLN NEB SCH ×3 (07:20→18:40)
[2020-04-16] MEDS: FLUCONAZOLE 200MG/100ML 100 ML IV SCH (08:45)
[2020-04-16] MEDS: ENOXAPARIN SOD 120 MG/0.8 ML SYRINGE SC SCH ×2 (08:46→21:12)
[2020-04-16] MEDS: ASCORBIC ACID 1,000 MG TAB PO SCH (08:46)
[2020-04-16] MEDS: FUROSEMIDE 20 MG/2 ML VIAL IV SCH (08:46)
[2020-04-16] MEDS: FAMOTIDINE 20 MG TAB PO SCH ×2 (08:46→21:12)
[2020-04-16] MEDS: ZINC SULFATE 220mg CAP or TAB PO SCH (08:47)
[2020-04-16] MEDS: SODIUM CHLOR 0.9% PF (SALINE LOCK) 10ML VIAL/SYR IV SCH ×2 (08:47→21:12)
[2020-04-16] MEDS: CHOLECALCIFEROL (VITD3) 2,000 UNIT CAP PO SCH (08:47)
[2020-04-16] MEDS: DexAMETHasone SOD PHOS 10MG/1ML VIAL INJ IV SCH (10:00)
[2020-04-16] MEDS ORDERED: hydrALAZINE HCL 20 MG/ML VL IV PRN (13:30)
[2020-04-16] MEDS ORDERED: hydrALAZINE HCL 20 MG/ML VL ONE (13:33)
[2020-04-16] MEDS: PROPOFOL 100 ML IV SCH ×2 (14:32→20:00)
[2020-04-16] MEDS ORDERED: METOPROLOL TARTRATE 1MG/1ML-5ML VIAL IV ONE ×2 (15:45→15:48)
[2020-04-16] MEDS: fentaNYL Drip 2500mCg/250mlNS 250 ML IV SCH (16:15)
[2020-04-17] VITALS (92 sets, daily range): BP systolic 117–182; BP diastolic 43–99
[2020-04-17 04:30] LABS: Basophils # (auto) 0.1 10 ^3/uL (0-0.2); Basophils % (auto) 0.4 % (0.0-2.0); Eosinophils # (auto) 0 10 ^3/uL (0-0.8); Eosinophils % (auto) 0.1 % (0.0-7.0); Hematocrit 40.6 % (41.0-53.0); Hemoglobin 13.7 g/dL (13.5-17.5); Lymphocytes # (auto) 1.9 10 ^3/uL (0.4-5.4); Lymphocytes % (auto) 10.9 % (10.0-50.0); Mean Corpuscular Hemoglobin 30.6 pg (28.0-32.0); Mean Corpuscular Hgb Conc. 33.7 g/dL (32.0-36.0); Mean Corpuscular Volume 90.9 fL (80.0-100.0); Monocytes # (auto) 1.4 10 ^3/uL (0-1.3); Monocytes % (auto) 8.1 % (0.0-12.0); Neutrophils # (auto) 14.1 10 ^3/uL (1.6-8.6); Neutrophils % (auto) 80.5 % (37.0-80.0); Platelet Count (auto) 354 10^3/uL (140-450); Red Blood Cells 4.46 10^6/uL (4.5-5.90); White Blood Cell 17.5 10^3/uL (4.4-10.8)
[2020-04-17 04:50] LABS: Potassium 4.2 mmol/L (3.5-5.1)
[2020-04-17 04:58] LABS: Albumin 2.7 g/dL (3.4-5.0); BUN/Creatinine Ratio 47.1; Calcium 8.5 mg/dL (8.5-10.1); Total Protein 6.4 g/dL (6.4-8.2)
[2020-04-17] MEDS: PIPERACILLIN-TAZOB 3.375GM 100 ML IV SCH ×3 (05:40→18:19)
[2020-04-17] MEDS: ACCU-CHEK COMFORT CURVE STRIP VI SCH ×4 (05:43→20:50)
[2020-04-17] MEDS: ALBUTEROL SULF 2.5 MG/0.5ML(0.5%) NEB SOLN NEB SCH ×2 (06:19→22:07)
[2020-04-17] MEDS: BUDESONIDE (INHALATION) 0.5 MG/2 ML NEB NEB SCH ×2 (06:19→22:07)
[2020-04-17] MEDS: InsuLIN REG 1unit/0.01ml Soln (100units/ml) SC SCH ×4 (06:46→20:50)
[2020-04-17] MEDS: DexAMETHasone SOD PHOS 10MG/1ML VIAL INJ IV SCH (09:13)
[2020-04-17] MEDS: hydrALAZINE HCL 20 MG/ML VL IV PRN ×2 (09:13→17:45)
[2020-04-17] MEDS: FAMOTIDINE 20 MG TAB PO SCH ×2 (09:14→20:51)
[2020-04-17] MEDS: ZINC SULFATE 220mg CAP or TAB PO SCH (09:14)
[2020-04-17] MEDS: FLUCONAZOLE 200MG/100ML 100 ML IV SCH (09:14)
[2020-04-17] MEDS: SODIUM CHLOR 0.9% PF (SALINE LOCK) 10ML VIAL/SYR IV SCH ×2 (09:14→20:50)
[2020-04-17] MEDS: ASCORBIC ACID 1,000 MG TAB PO SCH (09:14)
[2020-04-17] MEDS: FUROSEMIDE 20 MG/2 ML VIAL IV SCH (09:14)
[2020-04-17] MEDS: CHOLECALCIFEROL (VITD3) 2,000 UNIT CAP PO SCH (09:15)
[2020-04-17] MEDS: ENOXAPARIN SOD 120 MG/0.8 ML SYRINGE SC SCH ×2 (09:15→20:50)
[2020-04-17] MEDS: fentaNYL Drip 2500mCg/250mlNS 250 ML IV SCH (14:30)
[2020-04-17] MEDS: MIDAZOLAM DRIP 50 mg/50mL 50 ML IV SCH (14:30)
[2020-04-17] MEDS: MORPHINE SULF INJ 2 MG/ML SYRINGE 1ML IV PRN (15:15)
[2020-04-17] MEDS ORDERED: LORazepam 2MG/ML-1ML VIAL IV ONE (22:30)
[2020-04-18] VITALS (38 sets, daily range): BP systolic 119–152; BP diastolic 64–86
[2020-04-18] MEDS: PIPERACILLIN-TAZOB 3.375GM 100 ML IV SCH ×4 (00:01→18:49)
[2020-04-18] MEDS: ACCU-CHEK COMFORT CURVE STRIP VI SCH ×4 (06:00→22:00)
[2020-04-18] MEDS: ALBUTEROL SULF 2.5 MG/0.5ML(0.5%) NEB SOLN NEB SCH ×2 (06:00→19:40)
[2020-04-18] MEDS: InsuLIN REG 1unit/0.01ml Soln (100units/ml) SC SCH ×4 (06:01→22:00)
[2020-04-18] MEDS: BUDESONIDE (INHALATION) 0.5 MG/2 ML NEB NEB SCH ×2 (10:00→19:40)
[2020-04-18] MEDS: FUROSEMIDE 20 MG/2 ML VIAL IV SCH (10:12)
[2020-04-18] MEDS: DexAMETHasone SOD PHOS 10MG/1ML VIAL INJ IV SCH (10:12)
[2020-04-18] MEDS: FLUCONAZOLE 200MG/100ML 100 ML IV SCH (10:12)
[2020-04-18] MEDS: CHOLECALCIFEROL (VITD3) 2,000 UNIT CAP PO SCH (10:12)
[2020-04-18] MEDS: ASCORBIC ACID 1,000 MG TAB PO SCH (10:12)
[2020-04-18] MEDS: SODIUM CHLOR 0.9% PF (SALINE LOCK) 10ML VIAL/SYR IV SCH ×2 (10:12→22:00)
[2020-04-18] MEDS: ENOXAPARIN SOD 120 MG/0.8 ML SYRINGE SC SCH (10:12)
[2020-04-18] MEDS: FAMOTIDINE 20 MG TAB PO SCH ×2 (10:12→22:00)
[2020-04-18] MEDS: ZINC SULFATE 220mg CAP or TAB PO SCH (10:12)
[2020-04-19] VITALS: BP 130/79
[2020-04-19] MEDS: PIPERACILLIN-TAZOB 3.375GM 100 ML IV SCH ×4 (00:22→18:30)
[2020-04-19] MEDS: ACCU-CHEK COMFORT CURVE STRIP VI SCH ×4 (06:38→22:00)
[2020-04-19] MEDS: InsuLIN REG 1unit/0.01ml Soln (100units/ml) SC SCH ×4 (06:44→22:00)
[2020-04-19] MEDS: ALBUTEROL SULF 2.5 MG/0.5ML(0.5%) NEB SOLN NEB SCH ×3 (07:49→20:52)
[2020-04-19] MEDS: BUDESONIDE (INHALATION) 0.5 MG/2 ML NEB NEB SCH ×2 (07:49→20:52)
[2020-04-19 08:03] VITALS: BP 117/69
[2020-04-19] MEDS: MORPHINE SULF INJ 2 MG/ML SYRINGE 1ML IV PRN ×2 (08:54→14:17)
[2020-04-19] MEDS: DexAMETHasone SOD PHOS 10MG/1ML VIAL INJ IV SCH (09:07)
[2020-04-19] MEDS: FUROSEMIDE 20 MG/2 ML VIAL IV SCH (09:08)
[2020-04-19] MEDS: FLUCONAZOLE 200MG/100ML 100 ML IV SCH (09:08)
[2020-04-19] MEDS: FAMOTIDINE 20 MG TAB PO SCH ×2 (09:09→22:00)
[2020-04-19] MEDS: ASCORBIC ACID 1,000 MG TAB PO SCH (09:09)
[2020-04-19] MEDS: ZINC SULFATE 220mg CAP or TAB PO SCH (09:09)
[2020-04-19] MEDS: SODIUM CHLOR 0.9% PF (SALINE LOCK) 10ML VIAL/SYR IV SCH ×2 (09:09→22:00)
[2020-04-19] MEDS: CHOLECALCIFEROL (VITD3) 2,000 UNIT CAP PO SCH (09:10)
[2020-04-19] MEDS: ENOXAPARIN SOD 120 MG/0.8 ML SYRINGE SC SCH (09:10)
[2020-04-19 12:09] LABS: Hematocrit 43.4 % (41.0-53.0); Hemoglobin 14.1 g/dL (13.5-17.5); Mean Corpuscular Hemoglobin 29.8 pg (28.0-32.0); Mean Corpuscular Hgb Conc. 32.5 g/dL (32.0-36.0); Mean Corpuscular Volume 91.7 fL (80.0-100.0); Platelet Count (auto) 406 10^3/uL (140-450); Red Blood Cells 4.73 10^6/uL (4.5-5.90); Red Cell Distribution Width 14.2 % (11.8-14.3); White Blood Cell 20.7 10^3/uL (4.4-10.8)
[2020-04-19 12:25] LABS: INR 1.08 (0.9-1.15); Partial Thromboplastin Time 28.5 sec (23.0-31.2)
[2020-04-19 12:26] LABS: BUN/Creatinine Ratio 47.5; Calcium 8.4 mg/dL (8.5-10.1); Potassium 3.9 mmol/L (3.5-5.1)
[2020-04-19 12:36] LABS: Basophils % (manual) 0 (0.0-2.0); Blast Cells 0; Metamyelocytes % 0; Myelocytes % 0; Promyelocytes % 0
[2020-04-19] MEDS: FLORASTOR (S. BOULARDII) 250 MG CAP PO SCH ×2 (12:45→22:00)
[2020-04-19 14:02] LABS: Band Neutrophils % (manual) 3; Eosinophils % (manual) 1 (0-7); Lymphocytes % (manual) 5 (10.0-50.0); Monocytes % (manual) 4 (0-12); Reactive Lymphocytes 1
[2020-04-19 16:12] VITALS: BP 108/77
[2020-04-19] MEDS ORDERED: WARFARIN SODIUM 2.5 MG TAB PO ONE (17:00)
[2020-04-19] MEDS: ERGOCALCIFEROL 50,000 UNIT(1.25MG) CAP PO SCH (22:45)
[2020-04-19 23:37] VITALS: BP 134/85
[2020-04-20] MEDS: ALBUTEROL SULF 2.5 MG/0.5ML(0.5%) NEB SOLN NEB SCH ×2 (06:05→20:09)
[2020-04-20] MEDS: BUDESONIDE (INHALATION) 0.5 MG/2 ML NEB NEB SCH ×2 (06:05→20:09)
[2020-04-20 06:27] LABS: Basophils # (auto) 0 10 ^3/uL (0-0.2); Basophils % (auto) 0.2 % (0.0-2.0); Eosinophils # (auto) 0.1 10 ^3/uL (0-0.8); Eosinophils % (auto) 0.3 % (0.0-7.0); Hematocrit 40.1 % (41.0-53.0); Hemoglobin 13.5 g/dL (13.5-17.5); Lymphocytes # (auto) 2.6 10 ^3/uL (0.4-5.4); Lymphocytes % (auto) 13.7 % (10.0-50.0); Mean Corpuscular Hemoglobin 30.4 pg (28.0-32.0); Mean Corpuscular Hgb Conc. 33.6 g/dL (32.0-36.0); Mean Corpuscular Volume 90.7 fL (80.0-100.0); Monocytes # (auto) 1.6 10 ^3/uL (0-1.3); Monocytes % (auto) 8.5 % (0.0-12.0); Neutrophils # (auto) 14.4 10 ^3/uL (1.6-8.6); Neutrophils % (auto) 77.3 % (37.0-80.0); Platelet Count (auto) 325 10^3/uL (140-450); Red Blood Cells 4.42 10^6/uL (4.5-5.90); Red Cell Distribution Width 14.2 % (11.8-14.3); White Blood Cell 18.7 10^3/uL (4.4-10.8)
[2020-04-20 06:42] LABS: Albumin 2.9 g/dL (3.4-5.0); Calcium 8.4 mg/dL (8.5-10.1); Potassium 3.5 mmol/L (3.5-5.1)
[2020-04-20 06:46] LABS: BUN/Creatinine Ratio 44.2; Bilirubin, Total 1.8 mg/dL (0.2-1.0); CRP High Sensitivity 0.2 mg/dL (< 0.3); Total Protein 6.3 g/dL (6.4-8.2)
[2020-04-20 06:50] LABS: INR 1.05 (0.9-1.15)
[2020-04-20] MEDS: InsuLIN REG 1unit/0.01ml Soln (100units/ml) SC SCH ×4 (07:00→22:15)
[2020-04-20] MEDS: ACCU-CHEK COMFORT CURVE STRIP VI SCH ×4 (07:00→22:15)
[2020-04-20 08:00] VITALS: BP 135/70
[2020-04-20] MEDS ORDERED: ERGOCALCIFEROL 50,000 UNIT(1.25MG) CAP PO SCH (10:00)
[2020-04-20] MEDS: FLUCONAZOLE 200MG/100ML 100 ML IV SCH (10:01)
[2020-04-20] MEDS: FUROSEMIDE 20 MG/2 ML VIAL IV SCH (10:01)
[2020-04-20] MEDS: ASCORBIC ACID 1,000 MG TAB PO SCH (10:02)
[2020-04-20] MEDS: SODIUM CHLOR 0.9% PF (SALINE LOCK) 10ML VIAL/SYR IV SCH ×2 (10:02→22:00)
[2020-04-20] MEDS: FLORASTOR (S. BOULARDII) 250 MG CAP PO SCH ×3 (10:02→22:15)
[2020-04-20] MEDS: CHOLECALCIFEROL (VITD3) 2,000 UNIT CAP PO SCH (10:02)
[2020-04-20] MEDS: ZINC SULFATE 220mg CAP or TAB PO SCH (10:02)
[2020-04-20] MEDS: FAMOTIDINE 20 MG TAB PO SCH ×2 (10:02→22:15)
[2020-04-20 13:00] VITALS: BP 111/69
[2020-04-20] MEDS ORDERED: WARFARIN SODIUM 2.5 MG TAB PO ONE (17:00)
[2020-04-20 17:16] VITALS: BP 131/72
[2020-04-20] MEDS: MORPHINE SULF INJ 2 MG/ML SYRINGE 1ML IV PRN (20:00)
[2020-04-21] VITALS: BP 110/68
[2020-04-21] MEDS: InsuLIN REG 1unit/0.01ml Soln (100units/ml) SC SCH ×4 (06:31→22:30)
[2020-04-21] MEDS: ACCU-CHEK COMFORT CURVE STRIP VI SCH ×4 (06:31→22:26)
[2020-04-21 08:00] VITALS: BP 112/72
[2020-04-21] MEDS: ALBUTEROL SULF 2.5 MG/0.5ML(0.5%) NEB SOLN NEB SCH ×2 (08:27→14:38)
[2020-04-21] MEDS: FUROSEMIDE 20 MG/2 ML VIAL IV SCH (10:00)
[2020-04-21] MEDS: BUDESONIDE (INHALATION) 0.5 MG/2 ML NEB NEB SCH (10:26)
[2020-04-21] MEDS: FLUCONAZOLE 200MG/100ML 100 ML IV SCH (10:40)
[2020-04-21] MEDS: SODIUM CHLOR 0.9% PF (SALINE LOCK) 10ML VIAL/SYR IV SCH ×2 (10:41→22:25)
[2020-04-21] MEDS: ZINC SULFATE 220mg CAP or TAB PO SCH (10:41)
[2020-04-21] MEDS: CHOLECALCIFEROL (VITD3) 2,000 UNIT CAP PO SCH (10:44)
[2020-04-21] MEDS: FLORASTOR (S. BOULARDII) 250 MG CAP PO SCH ×2 (10:44→22:26)
[2020-04-21] MEDS: FAMOTIDINE 20 MG TAB PO SCH ×2 (10:44→22:26)
[2020-04-21] MEDS: ASCORBIC ACID 1,000 MG TAB PO SCH (10:44)
[2020-04-21 15:37] LABS: Basophils # (auto) 0.2 10 ^3/uL (0-0.2); Basophils % (auto) 1.1 % (0.0-2.0); Eosinophils # (auto) 0.5 10 ^3/uL (0-0.8); Hematocrit 40.3 % (41.0-53.0); Hemoglobin 13.5 g/dL (13.5-17.5); Lymphocytes # (auto) 2.7 10 ^3/uL (0.4-5.4); Lymphocytes % (auto) 20.4 % (10.0-50.0); Mean Corpuscular Hemoglobin 30.8 pg (28.0-32.0); Mean Corpuscular Hgb Conc. 33.5 g/dL (32.0-36.0); Mean Corpuscular Volume 91.9 fL (80.0-100.0); Monocytes # (auto) 1.2 10 ^3/uL (0-1.3); Monocytes % (auto) 8.8 % (0.0-12.0); Neutrophils # (auto) 8.6 10 ^3/uL (1.6-8.6); Neutrophils % (auto) 65.7 % (37.0-80.0); Nucleated Red Blood Cells % 0.2 %; Platelet Count (auto) 268 10^3/uL (140-450); Red Blood Cells 4.38 10^6/uL (4.5-5.90); Red Cell Distribution Width 14.3 % (11.8-14.3); White Blood Cell 13.2 10^3/uL (4.4-10.8)
[2020-04-21 15:55] LABS: INR 1.51 (0.9-1.15)
[2020-04-21 16:00] VITALS: BP 132/71
[2020-04-21 16:06] LABS: Calcium 8.6 mg/dL (8.5-10.1); Potassium 3.6 mmol/L (3.5-5.1)
[2020-04-21 16:08] LABS: BUN/Creatinine Ratio 46.4
[2020-04-21] MEDS ORDERED: WARFARIN SODIUM 5 MG TAB PO ONE (17:15)
[2020-04-21] MEDS: BUDESONIDE (INHALATION) 180 MCG IH IN SCH (19:11)
[2020-04-21] MEDS ORDERED: ALBUTEROL SULF HFA 90MCG INH 200DOSE IN SCH (22:00)
[2020-04-21 23:34] VITALS: BP 118/69
[2020-04-22] MEDS: MORPHINE SULF INJ 2 MG/ML SYRINGE 1ML IV PRN (00:01)
[2020-04-22] MEDS: ACCU-CHEK COMFORT CURVE STRIP VI SCH ×4 (06:31→22:00)
[2020-04-22] MEDS: InsuLIN REG 1unit/0.01ml Soln (100units/ml) SC SCH ×4 (06:32→22:00)
[2020-04-22 07:09] LABS: Basophils # (auto) 0.2 10 ^3/uL (0-0.2); Basophils % (auto) 1.3 % (0.0-2.0); Eosinophils # (auto) 0.8 10 ^3/uL (0-0.8); Eosinophils % (auto) 6.1 % (0.0-7.0); Hematocrit 38.8 % (41.0-53.0); Hemoglobin 13.1 g/dL (13.5-17.5); Lymphocytes # (auto) 2.9 10 ^3/uL (0.4-5.4); Lymphocytes % (auto) 23.5 % (10.0-50.0); Mean Corpuscular Hemoglobin 31.1 pg (28.0-32.0); Mean Corpuscular Hgb Conc. 33.6 g/dL (32.0-36.0); Mean Corpuscular Volume 92.6 fL (80.0-100.0); Monocytes % (auto) 8.1 % (0.0-12.0); Neutrophils # (auto) 7.7 10 ^3/uL (1.6-8.6); Nucleated Red Blood Cells % 0.2 %; Platelet Count (auto) 221 10^3/uL (140-450); Red Blood Cells 4.19 10^6/uL (4.5-5.90); Red Cell Distribution Width 14.3 % (11.8-14.3); White Blood Cell 12.5 10^3/uL (4.4-10.8)
[2020-04-22] MEDS: BUDESONIDE (INHALATION) 180 MCG IH IN SCH ×2 (07:10→18:50)
[2020-04-22 07:21] LABS: INR 3.43 (0.9-1.15); Partial Thromboplastin Time 24.4 sec (23.0-31.2)
[2020-04-22 08:00] VITALS: BP 110/59
[2020-04-22] MEDS: SODIUM CHLOR 0.9% PF (SALINE LOCK) 10ML VIAL/SYR IV SCH ×2 (09:51→22:00)
[2020-04-22] MEDS: FLORASTOR (S. BOULARDII) 250 MG CAP PO SCH ×2 (10:20→22:00)
[2020-04-22] MEDS: ZINC SULFATE 220mg CAP or TAB PO SCH (10:20)
[2020-04-22] MEDS: FAMOTIDINE 20 MG TAB PO SCH ×2 (10:20→22:00)
[2020-04-22] MEDS: FUROSEMIDE 40 MG/4 ML VIAL IV SCH (10:20)
[2020-04-22] MEDS: CHOLECALCIFEROL (VITD3) 2,000 UNIT CAP PO SCH (10:21)
[2020-04-22] MEDS: ASCORBIC ACID 1,000 MG TAB PO SCH (10:21)
[2020-04-22] MEDS: ALBUTEROL SULF HFA 90MCG INH 200DOSE IN PRN (18:50)
[2020-04-23] VITALS: BP 123/62
[2020-04-23 06:16] LABS: Partial Thromboplastin Time 29.6 sec (23.0-31.2)
[2020-04-23] MEDS: InsuLIN REG 1unit/0.01ml Soln (100units/ml) SC SCH ×4 (06:16→22:00)
[2020-04-23] MEDS: ACCU-CHEK COMFORT CURVE STRIP VI SCH ×4 (06:16→21:30)
[2020-04-23 06:18] LABS: INR 5.01 (0.9-1.15)
[2020-04-23] MEDS: BUDESONIDE (INHALATION) 180 MCG IH IN SCH ×2 (07:05→18:58)
[2020-04-23 08:00] VITALS: BP 115/62
[2020-04-23 09:05] LABS: Basophils # (auto) 0.1 10 ^3/uL (0-0.2); Eosinophils # (auto) 0.9 10 ^3/uL (0-0.8); Eosinophils % (auto) 8.4 % (0.0-7.0); Hematocrit 40.2 % (41.0-53.0); Hemoglobin 13.3 g/dL (13.5-17.5); Lymphocytes # (auto) 2.9 10 ^3/uL (0.4-5.4); Lymphocytes % (auto) 27.5 % (10.0-50.0); Mean Corpuscular Hemoglobin 30.7 pg (28.0-32.0); Mean Corpuscular Volume 93.1 fL (80.0-100.0); Monocytes % (auto) 9.2 % (0.0-12.0); Neutrophils # (auto) 5.7 10 ^3/uL (1.6-8.6); Neutrophils % (auto) 53.9 % (37.0-80.0); Nucleated Red Blood Cells % 0.1 %; Platelet Count (auto) 201 10^3/uL (140-450); Red Blood Cells 4.32 10^6/uL (4.5-5.90); Red Cell Distribution Width 14.6 % (11.8-14.3); White Blood Cell 10.6 10^3/uL (4.4-10.8)
[2020-04-23] MEDS: ZINC SULFATE 220mg CAP or TAB PO SCH (09:53)
[2020-04-23] MEDS: FUROSEMIDE 40 MG/4 ML VIAL IV SCH (09:54)
[2020-04-23] MEDS: SODIUM CHLOR 0.9% PF (SALINE LOCK) 10ML VIAL/SYR IV SCH ×2 (09:54→21:30)
[2020-04-23] MEDS: CHOLECALCIFEROL (VITD3) 2,000 UNIT CAP PO SCH (09:55)
[2020-04-23] MEDS: ASCORBIC ACID 1,000 MG TAB PO SCH (09:55)
[2020-04-23] MEDS: FAMOTIDINE 20 MG TAB PO SCH ×2 (09:57→21:30)
[2020-04-23] MEDS: FLORASTOR (S. BOULARDII) 250 MG CAP PO SCH ×2 (10:00→21:30)
[2020-04-23 16:00] VITALS: BP 124/63
[2020-04-23] MEDS: ALBUTEROL SULF HFA 90MCG INH 200DOSE IN PRN (18:58)
[2020-04-24] VITALS: BP 125/69
[2020-04-24 06:22] LABS: Basophils # (auto) 0.1 10 ^3/uL (0-0.2); Basophils % (auto) 1.1 % (0.0-2.0); Eosinophils # (auto) 0.6 10 ^3/uL (0-0.8); Eosinophils % (auto) 5.4 % (0.0-7.0); Hemoglobin 14.1 g/dL (13.5-17.5); Lymphocytes # (auto) 2.6 10 ^3/uL (0.4-5.4); Lymphocytes % (auto) 22.5 % (10.0-50.0); Mean Corpuscular Hemoglobin 31.1 pg (28.0-32.0); Mean Corpuscular Hgb Conc. 33.4 g/dL (32.0-36.0); Monocytes % (auto) 8.8 % (0.0-12.0); Neutrophils # (auto) 7.2 10 ^3/uL (1.6-8.6); Neutrophils % (auto) 62.2 % (37.0-80.0); Nucleated Red Blood Cells % 0.1 %; Platelet Count (auto) 164 10^3/uL (140-450); Red Blood Cells 4.52 10^6/uL (4.5-5.90); Red Cell Distribution Width 14.7 % (11.8-14.3); White Blood Cell 11.5 10^3/uL (4.4-10.8)
[2020-04-24] MEDS: ACCU-CHEK COMFORT CURVE STRIP VI SCH ×4 (07:25→22:29)
[2020-04-24] MEDS: InsuLIN REG 1unit/0.01ml Soln (100units/ml) SC SCH ×4 (07:25→22:47)
[2020-04-24 08:00] VITALS: BP 115/67
[2020-04-24 09:13] LABS: INR 3.54 (0.9-1.15); Partial Thromboplastin Time 31.6 sec (23.0-31.2)
[2020-04-24] MEDS: ASCORBIC ACID 1,000 MG TAB PO SCH (09:43)
[2020-04-24] MEDS: ZINC SULFATE 220mg CAP or TAB PO SCH (09:43)
[2020-04-24] MEDS: FAMOTIDINE 20 MG TAB PO SCH ×2 (09:43→22:30)
[2020-04-24] MEDS: FUROSEMIDE 40 MG/4 ML VIAL IV SCH (09:44)
[2020-04-24] MEDS: CHOLECALCIFEROL (VITD3) 2,000 UNIT CAP PO SCH (09:45)
[2020-04-24] MEDS: SODIUM CHLOR 0.9% PF (SALINE LOCK) 10ML VIAL/SYR IV SCH ×2 (09:47→22:29)
[2020-04-24] MEDS: BUDESONIDE (INHALATION) 180 MCG IH IN SCH ×2 (10:24→19:17)
[2020-04-24] MEDS: ALBUTEROL SULF HFA 90MCG INH 200DOSE IN PRN ×2 (10:24→19:17)
[2020-04-24] MEDS: FLORASTOR (S. BOULARDII) 250 MG CAP PO SCH ×2 (11:44→22:30)
[2020-04-24 15:52] VITALS: BP 106/74
[2020-04-25] VITALS: BP 98/64
[2020-04-25] MEDS: ACCU-CHEK COMFORT CURVE STRIP VI SCH ×4 (06:59→21:51)
[2020-04-25] MEDS: InsuLIN REG 1unit/0.01ml Soln (100units/ml) SC SCH ×4 (07:01→21:52)
[2020-04-25] MEDS: BUDESONIDE (INHALATION) 180 MCG IH IN SCH ×2 (07:20→21:35)
[2020-04-25] MEDS: ALBUTEROL SULF HFA 90MCG INH 200DOSE IN PRN ×2 (07:20→21:35)
[2020-04-25 07:28] LABS: INR 2.76 (0.9-1.15); Partial Thromboplastin Time 34.2 sec (23.0-31.2)
[2020-04-25 07:50] VITALS: BP 114/71
[2020-04-25] MEDS: FAMOTIDINE 20 MG TAB PO SCH ×2 (10:00→21:50)
[2020-04-25] MEDS: FLORASTOR (S. BOULARDII) 250 MG CAP PO SCH ×2 (10:48→21:50)
[2020-04-25] MEDS: FUROSEMIDE 40 MG/4 ML VIAL IV SCH (10:48)
[2020-04-25] MEDS: SODIUM CHLOR 0.9% PF (SALINE LOCK) 10ML VIAL/SYR IV SCH ×2 (10:48→21:50)
[2020-04-25] MEDS: ZINC SULFATE 220mg CAP or TAB PO SCH (10:48)
[2020-04-25] MEDS: ASCORBIC ACID 1,000 MG TAB PO SCH (10:49)
[2020-04-25] MEDS: CHOLECALCIFEROL (VITD3) 2,000 UNIT CAP PO SCH (10:49)
[2020-04-25] MEDS ORDERED: HYDROmorphone HCL 2 MG/ML VL IV ONE (13:45)
[2020-04-25 16:22] VITALS: BP 122/80
[2020-04-26] VITALS: BP 116/78
[2020-04-26] MEDS: ACCU-CHEK COMFORT CURVE STRIP VI SCH ×2 (06:00→13:40)
[2020-04-26 06:01] LABS: Basophils # (auto) 0.1 10 ^3/uL (0-0.2); Basophils % (auto) 1.1 % (0.0-2.0); Eosinophils # (auto) 0.7 10 ^3/uL (0-0.8); Eosinophils % (auto) 8.1 % (0.0-7.0); Hematocrit 36.8 % (41.0-53.0); Hemoglobin 12.6 g/dL (13.5-17.5); Lymphocytes # (auto) 2.3 10 ^3/uL (0.4-5.4); Mean Corpuscular Hemoglobin 31.5 pg (28.0-32.0); Mean Corpuscular Hgb Conc. 34.1 g/dL (32.0-36.0); Mean Corpuscular Volume 92.2 fL (80.0-100.0); Monocytes % (auto) 11.5 % (0.0-12.0); Neutrophils # (auto) 4.5 10 ^3/uL (1.6-8.6); Neutrophils % (auto) 52.3 % (37.0-80.0); Nucleated Red Blood Cells % 0.1 %; Platelet Count (auto) 139 10^3/uL (140-450); Red Blood Cells 3.99 10^6/uL (4.5-5.90); White Blood Cell 8.5 10^3/uL (4.4-10.8)
[2020-04-26] MEDS: InsuLIN REG 1unit/0.01ml Soln (100units/ml) SC SCH ×2 (06:02→13:42)
[2020-04-26 06:09] LABS: INR 1.94 (0.9-1.15); Partial Thromboplastin Time 31.6 sec (23.0-31.2)
[2020-04-26 06:24] LABS: Calcium 8.6 mg/dL (8.5-10.1); Magnesium 2.1 mg/dL (1.6-2.6); Potassium 3.5 mmol/L (3.5-5.1)
[2020-04-26 06:29] LABS: BUN/Creatinine Ratio 54.4; Bilirubin, Total 1.1 mg/dL (0.2-1.0); Phosphorus 3.3 mg/dL (2.5-4.90); Total Protein 6.1 g/dL (6.4-8.2)
[2020-04-26] MEDS: ALBUTEROL SULF HFA 90MCG INH 200DOSE IN PRN (06:37)
[2020-04-26] MEDS: BUDESONIDE (INHALATION) 180 MCG IH IN SCH (06:37)
[2020-04-26] MEDS: ZINC SULFATE 220mg CAP or TAB PO SCH (10:10)
[2020-04-26] MEDS: FLORASTOR (S. BOULARDII) 250 MG CAP PO SCH (10:10)
[2020-04-26] MEDS: FUROSEMIDE 40 MG/4 ML VIAL IV SCH (10:10)
[2020-04-26] MEDS: SODIUM CHLOR 0.9% PF (SALINE LOCK) 10ML VIAL/SYR IV SCH (10:10)
[2020-04-26] MEDS: CHOLECALCIFEROL (VITD3) 2,000 UNIT CAP PO SCH (10:11)
[2020-04-26] MEDS: ASCORBIC ACID 1,000 MG TAB PO SCH (10:11)
[2020-04-26] MEDS: FAMOTIDINE 20 MG TAB PO SCH (10:11)
== END 2020-04-26 13:26 | DRG 870 ==
LOC: EDBD 03:01 → ER 03:04 → TELE 03:05 → DOU IN ICU 04-08 03:26 → TELE-E-ADS 04-18 11:59 → TELE-EAST 04-25 17:17 → TELE-E-ADS 04-25 17:35 → TELE-EAST 04-25 20:00
PROVIDERS: ADMIT Nurse Practitioner Acute Care; ATTEND Internal Medicine
PROC: 5A09457 Assistance with Respiratory Ventilation, 24-96 Consecutive Hours, Continuous Positive Airway Pressure (ICD-10-PCS; 2020-04-04)
PROC: XW033E5 Introduction of Remdesivir Anti-infective into Peripheral Vein, Percutaneous Approach, New Technology Group 5 (ICD-10-PCS; principal; 2020-04-05)
PROC: XW13325 Transfusion of Convalescent Plasma (Nonautologous) into Peripheral Vein, Percutaneous Approach, New Technology Group 5 (ICD-10-PCS; 2020-04-05)
PROC: 5A1955Z Respiratory Ventilation, Greater than 96 Consecutive Hours (ICD-10-PCS; 2020-04-07)
PROC: 0BH17EZ Insertion of Endotracheal Airway into Trachea, Via Natural or Artificial Opening (ICD-10-PCS; 2020-04-07)
PROC: XW033H5 Introduction of Tocilizumab into Peripheral Vein, Percutaneous Approach, New Technology Group 5 (ICD-10-PCS; 2020-04-08)
PROC: 02HV33Z Insertion of Infusion Device into Superior Vena Cava, Percutaneous Approach (ICD-10-PCS; 2020-04-15)
DX: A41.89 Other specified sepsis (principal); I21.A1 Myocardial infarction type 2; I26.99 Other pulmonary embolism without acute cor pulmonale; J12.82 Pneumonia due to coronavirus disease 2019; J96.21 Acute and chronic respiratory failure with hypoxia; U07.1 COVID-19; D68.59 Other primary thrombophilia; J44.0 Chronic obstructive pulmonary disease with (acute) lower respiratory infection; E11.9 Type 2 diabetes mellitus without complications; E55.9 Vitamin D deficiency, unspecified; E66.9 Obesity, unspecified; E78.5 Hyperlipidemia, unspecified; I11.0 Hypertensive heart disease with heart failure; I50.9 Heart failure, unspecified; Z96.651 Presence of right artificial knee joint; S40.022A Contusion of left upper arm, initial encounter; X58.XXXA Exposure to other specified factors, initial encounter; Y93.89 Activity, other specified; Y92.89 Other specified places as the place of occurrence of the external cause; Y99.8 Other external cause status; Z79.01 Long term (current) use of anticoagulants; Z79.84 Long term (current) use of oral hypoglycemic drugs
CPT/HCPCS: 36415; 36569; 36600; 71045; 71275; 80048; 80053; 81001; 82306; 82728; 82805; 82962; 83036; 83605; 83615; 83735; 83880; 84100; 84443; 84484; 85007; 85025; 85027; 85379; 85610; 85730; 86141; 86850; 86900; 86901; 87040; 87045; 87070; 87077; 87081; 87086; 87186; 87205; 87426; 87427; 87493; 93005; 93970; 94002; 94003; 94640; 94660; 97110; 97116; 97163; 97530; 99291; C9113; G0378; J0330; J0696; J1100; J1450; J1815; J2250; J2405; J2543; J2704; J3490; J7060

== ENCOUNTER 2022-06-19 07:35 | Emergency (ER) | payer OTHER ==
[~2022-06-19] VITALS: Ht 177.8 cm; Wt 127.3 kg
[~2022-06-19 07:35] MED LIST: ELDE1SYP PO; IBUP800T26 PO; LISI-707 PO; METF-762 PO; MULTTAB48 PO; SILD50TA42 PO; SIMV10TA84 PO; TAMS1CAP25 PO
[2022-06-19 08:39] LABS: Basophils # (auto) 0.1 10 ^3/uL (0-0.2); Basophils % (auto) 0.7 % (0.0-2.0); Eosinophils # (auto) 0.3 10 ^3/uL (0-0.8); Eosinophils % (auto) 2.1 % (0.0-7.0); Hemoglobin 14.4 g/dL (13.5-17.5); Lymphocytes # (auto) 2.5 10 ^3/uL (0.4-5.4); Lymphocytes % (auto) 21.1 % (10.0-50.0); Mean Corpuscular Hemoglobin 29.7 pg (28.0-32.0); Mean Corpuscular Hgb Conc. 33.5 g/dL (32.0-36.0); Mean Corpuscular Volume 88.6 fL (80.0-100.0); Monocytes # (auto) 0.7 10 ^3/uL (0-1.3); Monocytes % (auto) 6.2 % (0.0-12.0); Neutrophils # (auto) 8.3 10 ^3/uL (1.6-8.6); Neutrophils % (auto) 69.9 % (37.0-80.0); Nucleated Red Blood Cells % 0.1 %; Red Blood Cells 4.85 10^6/uL (4.5-5.90); Red Cell Distribution Width 13.7 % (11.8-14.3); White Blood Cell 11.9 10^3/uL (4.4-10.8)
[2022-06-19 08:55] LABS: Albumin 3.6 g/dL (3.4-5.0); BUN/Creatinine Ratio 17.1; Bilirubin, Total 0.5 mg/dL (0.2-1.0); Magnesium 1.9 mg/dL (1.6-2.6); Potassium 4.3 mmol/L (3.5-5.1); Total Protein 7.2 g/dL (6.4-8.2)
[2022-06-19 09:59] VITALS: BP 142/82
== END 2022-06-19 10:13 | disposition home or self-care (01) ==
LOC: ER 07:35
DX: F07.81 Postconcussional syndrome (principal); I11.0 Hypertensive heart disease with heart failure; I50.9 Heart failure, unspecified; E78.5 Hyperlipidemia, unspecified; J44.9 Chronic obstructive pulmonary disease, unspecified; E11.9 Type 2 diabetes mellitus without complications; W00.0XXA Fall on same level due to ice and snow, initial encounter; Y93.89 Activity, other specified; Y92.89 Other specified places as the place of occurrence of the external cause; Y99.8 Other external cause status
CPT/HCPCS: 36415; 70450; 71045; 72125; 80053; 83735; 83880; 84484; 85025; 93005

== ENCOUNTER 2024-02-17 08:54 | Emergency (ER) | payer OTHER ==
[~2024-02-17] VITALS: Ht 180.3 cm; Wt 127.0 kg
[~2024-02-17 08:54] MED LIST changes: +IBUP-1455 PO; -IBUP800T26 PO; +SILD50TA PO; -SILD50TA42 PO; +SIMV10TA20 PO; -SIMV10TA84 PO
--- NOTE | 2024-02-17 09:48 | ED.PDOC ---
Back pain HPI HPI Comments This is a pleasant 68-year-old gentleman who presents with a chief complaint of nonradiating right rib pain S/P mechanical fall six days ago. Reports he was stepping down stairs when he accidentally tripped and rolled down approximally 5-6 days Has been endorsing nonradiating persistent right rib pain since. Unable to get adequate relief with Tylenol Worsens with lateral movements and improves at rest Denies hitting head denies LOC denies chest pain shortness of breath and denies taking blood thinners Chief Complaint: Fall Injury Time Seen by MD: 09:15 Primary Care Provider: unknown Reviewed Notes: Nurses Notes, Medications, Allergies Allergies: Coded Allergies: NO KNOWN ALLERGIES (Unverified , 04/04/20) Home Meds Reported Medications Simvastatin (Simvastatin) Unknown Strength Tab, PO QPM, #30 TAB 5 Refills 04/04/20 Sildenafil Citrate (Viagra) Unknown Strength Tab, PO PRN, #6 TAB 5 Refills 04/04/20 Multiple Vitamin (Multiple Vitamin) Tab, 1 TAB PO DAILY, TAB 04/04/20 Elderberry (Little Remedies For Colds) Unknown Strength Syp, PO BIDP, SYP 04/04/20 Ibuprofen Micronized (Ibuprofen) 800 Mg Tab, 800 MG PO BIDP, TAB 04/04/20 Lisinopril & Hydrochlorothiazi (Zestoretic 20-25 mg) 1 Tab Tab, 1 TAB PO DAILY, TAB 04/04/20 Metformin Hydrochloride (Metformin Hydrochloride E) 500 Mg Tab, 2 TAB PO BID 04/04/20 Tamsulosin HCl (Tamsulosin Hydrochloride) 0.4 Mg Cap, 1 CAP PO HS 04/04/20 Information Source: Patient Mode of Arrival: Ambulatory Past Medical History PAST MEDICAL HISTORY: CHF, COPD, DM, High Lipids, HTN Surgical History: Denies all surgeries Family History Family History: Reviewed,noncontributory to illness Social History Smoker: Non-Smoker Alcohol: Denies ETOH Use Drugs: Denies Drug Use Lives In: Home All Other Systems: Reviewed and Negative (Per HPI) Physical Exam General Appearance: No Apparent Distress, Normal HEENT: Normal ENT Inspection, Pharynx Normal, TMs Normal Neck: Full Range of Motion, Non-Tender, Normal, Normal Inspection Respiratory: Chest Non-Tender, Lungs Clear, No Accessory Muscle Use, No Respiratory Distress, Normal Breath Sounds Cardiovascular: No Edema, No JVD, No Murmur, No Gallop, Normal Peripheral Pulses, Regular Rate/Rhythm, Other (No chest wall injury. No ecchymosis. No open wounds. Localized tenderness to the right rib.) Breast Exam: Deferred Gastrointestinal: No Organomegaly, Non Tender, No Pulsatile Mass, Normal Bowel Sounds, Soft Genitalia: Deferred Pelvic: Discharge, No cerv. Motion Tender, No Masses Rectal: Deferred Extremities: No calf tenderness, Normal capillary refill, Normal inspection, Normal range of motion, Non-tender, No pedal edema Musculoskeletal : Apperance: Normal Neurologic: Alert, engineering technical writer II-XII nml as Tested, No Motor Deficits, Normal Affect, Normal Mood, No Sensory Deficits Cerebellar Function: Normal Reflexes: Normal Skin: Dry, Normal Color, Warm Lymphatic: No Adenopathy Was a procedure done? Was a procedure done?: No Sedation Sedation?: No Pelvic Exam Vaginal Discharge: Green Vaginal Lesions: None Vaginal Mass: None Back Pain Differential Dx Differential Diagnosis: Fracture, Musculoskeletal Pain, Other (STD) X-Ray, Labs, Meds, VS Vital Signs Date Time Temp Pulse Resp B/P (MAP) Pulse Ox O2 Delivery O2 Flow Rate FiO2 02/17/24 10:05 97.8 91 18 144/79 (100) 97 97.8 02/17/24 10:05 91 18 97 Room Air 02/17/24 09:07 97.8 91 18 144/79 (100) 97 PATIENT: TONIA KOCH RACCT: [id number]: [id number] : 1955 LOC: ER ROOM / BED: / AGE / SEX: 68 / M ADM STATUS: REG ER SERVICE 4 ORDERING PHYSICIAN: DEION BRUNSON NP PROCEDURE(s): RRIBS - R RIB XRAY REASON: fall ORDER NUMBER(s): [id number], ACCESSION NUMBER(s): [id number] EXAMINATION: XY R RIB XRAY INDICATION: Trauma COMPARISON: None TECHNIQUE: Frontal view of the chest and 4 views of the right ribs history FINDINGS: No focal consolidation, pleural effusion or significant pneumothorax. Normal cardiomediastinal silhouette. Possible nondisplaced right 9th rib fracture versus artifact. Correlate with point tenderness. IMPRESSION: No acute cardiopulmonary disease. Possible nondisplaced right 9th rib fracture versus artifact. Correlate with point tenderness. ATED BY: TYRONE FREEMAN MD DICTATED DATE/TIME: 02/17/24947 SIGNED BY: TYRONE FREEMAN MD SIGNED DATE/TIME: 02/17/24947 CC: X-Ray, Labs, Meds, VS Comment 68-year-old gentleman with a history of diabetes and hypertension presents with a chief complaint of acute rib pain S/P mechanical fall. After ROS physical examination neuro exam was unremarkable. Patient is not taking any blood thinners. Denies hitting head denies LOC. Therefore no indication for head CT at this time. GCS 15. Romberg and pronator drift negative Imaging was ordered to rule out acute fracture to the affected area. Xray findings show: Nondisplaced right 9th rib fracture Checked the [employer] website, no history of narcotic use within the past year. Will prescribe Valera p.o. for pain management. Education provided on possible side effects of medication including drowsiness, nausea, respiratory distress, etc. Do not drive, operate heavy machinery or make legal decisions while taking medication. Follow-up with your PMD within 24 to 48 hours. Patient is stable for discharge at this time. External notes reviewed. Test results and diagnostic imaging interpreted. All diagnostic findings, discharge care, education and instructions provided Follow-up with PCP in 2 to 3 days Patient verbalized understanding and agreed to treatment plan Vital signs stable, afebrile, no acute distress noted Patient ambulatory with strong steady gait Advised to return precautions for any new or worsening symptoms, return to ER immediately for re-evaluation Patient is aware that the purpose of this visit was for an acute medical emergency requiring emergent stabilization. Chronic conditions, including malignancies have not been ruled out. Patient is instructed to follow up with PCP as directed and discharge instructions for continued care and workup. If unable to arrange follow-up, patient is to return to the emergency department for reassessment. Patient (parent or legal guardian if applicable) was given verbal and written discharge instructions and acknowledges understanding. Time of 1ST Reevaluation: 10:07 Reevaluation 1ST: Improved Patient Education/Counseling: Diagnosis, Treatment Family Education/Counseling: Diagnosis, Treatment Departure 1 Departure Time of Disposition: 10:18 Impression: Primary Impression: Rib fracture Qualified Codes: S22.31XA - Fracture of one rib, right side, initial encounter for closed fracture Disposition: HOME / SELF CARE / HOMELESS Condition: Stable e-Prescriptions Hydrocodone-Acetaminophen (Hydrocodone Bitartrate/AC 5-325 mg) 1 Tab Tab 1 TAB PO Q8HP PRN for 5 Days, #15 TAB 0 Refills Prov: DEION BRUNSON NP 02/17/24 Discharged With: Self Critical Care Note Critical Care Time?: No Stability Stability form required: No Heart Score Heart Score: Heart Score Response (Comments) Value History N/A 0 EKG N/A 0 Age N/A 0 Risk Factors N/A 0 Troponin N/A 0 Total 0 DEION BRUNSON NP Feb 17, 2024 09:48
[2024-02-17 10:05] VITALS: BP 144/79; PULSE 91; RESP 18; TEMP 97.8; O2SAT 97
[2024-02-17] MEDS ORDERED: HYDR-4902 PO (10:19)
== END 2024-02-17 10:26 | disposition home or self-care (01) ==
LOC: ER 08:54
DX: S22.31XA Fracture of one rib, right side, initial encounter for closed fracture (principal); J44.9 Chronic obstructive pulmonary disease, unspecified; E11.9 Type 2 diabetes mellitus without complications; I11.0 Hypertensive heart disease with heart failure; I50.9 Heart failure, unspecified; Z79.899 Other long term (current) drug therapy; W10.8XXA Fall (on) (from) other stairs and steps, initial encounter; Y93.89 Activity, other specified; Y92.89 Other specified places as the place of occurrence of the external cause; Y99.8 Other external cause status
CPT/HCPCS: 71101